=== PATIENT | female | born 1995 | race African-American/Black ===

== ENCOUNTER 2023-11-04 03:18 | Emergency (ER) | payer MEDICAID ==
[~2023-11-04] VITALS: Ht 175.3 cm; Wt 121.6 kg
[2023-11-04 03:29] VITALS: BP_SYST 138; PULSE 118; RESP 20; TEMP 98.4; O2SAT 98
[2023-11-04] MEDS ORDERED: MUPI15CR12 TP (04:02)
[2023-11-04 04:06] VITALS: BP_SYST 138; PULSE 118; RESP 20; TEMP 98.4; O2SAT 98
== END 2023-11-04 04:06 | disposition home or self-care (01) ==
LOC: SED 03:18
DX: S80.211A Abrasion, right knee, initial encounter (principal); S70.311A Abrasion, right thigh, initial encounter; S90.812A Abrasion, left foot, initial encounter; S90.811A Abrasion, right foot, initial encounter; Z79.899 Other long term (current) drug therapy; W18.39XA Other fall on same level, initial encounter; Y93.89 Activity, other specified; Y92.89 Other specified places as the place of occurrence of the external cause; Y99.8 Other external cause status
CPT/HCPCS: 99283